=== PATIENT | female | born 1980 ===

== ENCOUNTER 2017-01-07 13:21 | Observation (INO) ==
[2017-01-07] MEDS ORDERED: HYDROmorphone 2 MG/1 ML VIAL ONE (13:51)
[2017-01-07] MEDS ORDERED: ONDANSETRON 4 MG/2 ML VIAL ONE (13:51)
[2017-01-07] MEDS ORDERED: HYDROmorphone 2 MG/1 ML VIAL IV STA (13:52)
[2017-01-07] MEDS ORDERED: ONDANSETRON 4 MG/2 ML VIAL IV STA (13:52)
--- NOTE | 2017-01-07 14:25 | Emergency Department Note ---
Karel Desouza Gwan, am scribing for, and in the presence of, Chavo Rodriguez MD 13:46. Michael Desouza Phillip K, MD, personally performed the services described in this documentation, ascribed by Bryce Vinson in my presence, and it is both accurate and complete 425 . Arrival - Arrival Chief Complaint: Abdominal / Flank Pain Stated Complaint: ABD PAIN TRANSFER FROM [facility] ED Nursing Triage Note: PT TRANSFERED FROM [facility] FOR EVALUATION OF ABD PAIN THAT STARTED LAST PM. PT REPORTS BLOOD IN HER URINE. PT HAS CT THAT SHOWED LT.HYDRONEPHROSIS AND RENAL STONES. PT ALSO NOTED TO HAVE GALLSTONES Mode of Arrival: Stretcher Limitations: No Limitations Source: Patient, Old Records Reviewed, RN Notes Reviewed - History of Present Illness HPI Narrative: Pt is a 36 y/o female, with a hx of HTN and cardiomyopathy, who presents to the ED for further evaluation of abd pain with an onset last night. Patient reported to [facility] today due to pain and upon further review, pt was dx with renal stones, hydronephrosis and gallstones. Patient confirmed that her pain has worsened today, that her pain radiates to her abd and now her sxs includes N/V. She denies any hx of kidney stones. She then noted that she was given Morphine en route. No other problems/complaints reported in ED. Onset (ago): hour(s) Consistency: constant Severity: moderate Allergies/Adverse Reactions: Allergies Allergy/AdvReac Type Severity Reaction Status Date / Time No Known Allergies Allergy Unverified 01/07/17 13:25 Review of System - Review of System 12 point system: reviewed and no additional remarkable complaints except as stated - Review of System Gastrointestinal: Present: as per HPI, abdominal pain Musculoskeletal: Present: as per HPI, lower back pain Medical,Surgical,& Family Hx - Medical History Cardio: History of: Hypertension, Cardiovascular Problems (CARDIOMYOPATHY) - Social History Smoking Status: Unknown if ever smoked Exam Vital Signs: Vital Signs Temperature 97.4 F L 01/07/17 13:21 Pulse Rate 71 01/07/17 13:21 Respiratory Rate 18 01/07/17 13:21 Blood Pressure 163/116 01/07/17 13:21 O2 Sat by Pulse Oximetry 98 01/07/17 13:21 - General General appearance: alert, in no apparent distress - Head Head exam: Present: atraumatic, normocephalic - Eye Eye exam: Present: normal appearance, PERRL, EOMI - ENT ENT exam: Present: normal oropharynx, mucous membranes moist, TM's normal bilaterally, normal external ear exam - Neck Neck exam: Present: full ROM, trachea midline. Absent: tenderness, meningismus , lymphadenopathy, thyromegaly - Chest Chest inspection: Present: symmetric chest wall rise. Absent: tenderness - Respiratory Respiratory exam: Present: normal lung sounds bilaterally. Absent: respiratory distress - Cardiovascular Cardiovascular exam: Present: regular rate, normal rhythm, normal heart sounds. Absent: murmur, rubs, gallop - Abdominal Exam Abdominal exam: Present: soft, normal bowel sounds - Extremities Exam Extremities exam: Present: full ROM. Absent: tenderness, pedal edema, calf tenderness - Back Exam Back exam: Present: full ROM. Absent: tenderness - Neurological Exam Neurological exam: Present: alert, oriented X3, CN II-XII intact. Absent: motor sensory deficit - Psychiatric Psychiatric exam: Present: normal affect, normal mood - Skin Skin exam: Present: warm, dry, intact, normal color Course Course Narrative: Patient discussed with Dr. Bernal who will see in the ED. Results - Diagnostic Findings Procedure: CT Abdomen and Pelvis: image reviewed by me (CT scan reviewed from [facility] which revealed a 67 mm stone in the proximal left ureter with left hydronephrosis. There is also gallstones noted on the CAT scan.) Disposition Clinical Impression: Ureterolithiasis, Gallstones, Hydronephrosis, left Case discussed with: patient Disposition: Still a Patient Condition: Stable Additional Instructions: Patient will be admitted to Dr. Bernal.
--- NOTE | 2017-01-07 14:43 | XRay Report ---
XR KUB Indication: Left-sided stone. Comparison: None. Technique: Supine AP image of the abdomen was obtained. Findings: There is a round calcification overlying the left transverse process of L3 which measures up to 5 mm. Smaller 2 to 3 mm calcifications noted bilaterally within the renal contour suggesting additional nephroliths. No organomegaly is present. Bony structures appear intact. Impression: 1. Multiple bilateral nephroliths are demonstrated. 2. Moderately large 5 mm calcification overlying the left transverse process of L3 compatible with proximal left ureteral stone additionally is present. 01/07/2017 2:34 PM PROCEDURE INTERPRETED AT [facility] DEPARTMENT OF RADIOLOGY Final Report Signed by: Dr. Johnny Montoya
--- NOTE | 2017-01-07 14:53 | Urology History & Physical ---
- Constitutional Constitutional: Absent: fever(s), lethargy, night sweats, weakness - Cardiovascular Cardiovascular: Absent: chest pain with activity, radiating jaw, neck or arm pain, orthopnea, palpitations - Respiratory Respiratory: Absent: cough, dyspnea, hemoptysis, wheezing - Gastrointestinal Gastrointestinal: Absent: constipation, heartburn, vomiting, jaundice - Genitourinary Genitourinary: Present: as per HPI - Neurological Neurological: Absent: abnormal gait, abnormal speech - Psychiatric Psychiatric: Absent: anxiety, depression History of Present Illness Chief complaint: Left flank pain History of present illness: Ms. Rain is a 36 year old female This 36-year-old female was seen at the [facility] the day of admission with a 2 day history of left flank pain. It started yesterday but got worse today. Renal colic CT shows a 6 mm stone in the left upper ureter. She has no past history of stones or any serious urological problems. Because of the size and location I am going recommend that we go ahead and treat her tomorrow with shockwave lithotripsy. I discussed this with the patient and we discussed the possible complications of failure of the procedure obstruction from fragments and hematuria. Patient has a history of cardiomyopathy so I am going to get a cardiology consultation prior to surgery. This was apparently diagnosed many years ago but she does not see a continuity clerk regularly and has had no history of congestive heart failure Home Medications Medication Instructions Recorded Confirmed Type No Known Home Medications [No 01/07/17 01/07/17 History Known Home Medications] Allergies Allergy/AdvReac Type Severity Reaction Status Date / Time No Known Allergies Allergy Unverified 01/07/17 13:25 Medical,Surgical,& Family Hx - Medical History Cardio: History of: Hypertension, Cardiovascular Problems (CARDIOMYOPATHY) Psychological: No history of: Psychiatric Problems Neurology: No history of: Neurological Problems Endocrine: No history of: Endocrine Problems Rheumatology: No history of;: Rheumatological Problems Respiratory: No history of: Respiratory Problems Genitourinary: No history of: Problems Gastrointestinal: No history of: GI Problems Musculoskeletal: No history of: Musculoskeletal Problems - Surgical History Surgical History: noncontributory - Social History Smoking Status: Unknown if ever smoked Exam - Constitutional Vitals: Period Temp Pulse Resp BP Sys/Leach Pulse Ox Last 24 Hr 97.4 F 71 18 163/116 98 General appearance: no acute distress, over weight - Head Head exam: Present: normocephalic - Neck Neck exam: Present: normal inspection - Respiratory Respiratory exam: Present: clear to auscultation bilaterally - Cardiovascular Cardiovascular exam: Present: regular rate and rhythm, systolic murmur - GI/Abdominal GI/Abdominal exam: Absent: distended, guarding, tenderness, rebound - Back Exam Back exam: Absent: muscle spasm - Neurological Exam Neurological exam: Present: alert, oriented X3 - Psychiatric Psychiatric exam: Present: normal affect, normal mood - Skin Skin exam: Present: warm, dry
[2017-01-07] MEDS ORDERED: MORPHINE 10 MG/1 ML VIAL IV PRN (18:49)
[2017-01-07] MEDS ORDERED: PROMETHAZINE 25 MG/1 ML VIAL IM SCH (19:00)
[2017-01-07] MEDS: DEXTROSE 5% NACL 0.45% 1,000 ML IV SCH (20:45)
[2017-01-07] MEDS ORDERED: PROMETHAZINE 25 MG/1 ML VIAL IM PRN (21:51)
--- NOTE | 2017-01-08 07:54 | Event Note ---
This morning, at 0746, I received a phone call from nurse advising of consult for cardiac clearance for Dr. Bernal for lithotripsy this morning. History of self-reported cardiomyopathy though not followed by a fisher troll line. I searched for prior records in [facility] computer systems as well as [facility] medical records and there are none. I have ordered an echo for this morning, EKG. Will discuss with Dr. Farley when he is available, currently in a procedure.
--- NOTE | 2017-01-08 07:58 | Urology Progress Note ---
Urology - PN: Subj Interval history: The patient is doing well this morning. I will discharge her to outpatient surgery for shockwave lithotripsy. Cardiology consult is pending for history of cardiomyopathy Exam - Constitutional Vitals: Period Temp Pulse Resp BP Sys/Leach Pulse Ox Last 24 Hr 97.8 F-98.3 F 64-77 18-20 86-145/54-84 96-100
--- NOTE | 2017-01-08 08:01 | Discharge Summary ---
Hospital Course - Hospital Course Hospital Course: This 36-year-old was admitted to the hospital with a 2 day history of left flank pain. A CT scan in [place] demonstrated a 5-6 mm stone in the left proximal ureter. Laboratory studies there were normal. She has a history of cardiomyopathy and a cardiology consultation is pending. She will be discharged with her IV to outpatient surgery for shockwave lithotripsy. Discharge Plan - Discharge Medications No Action No Known Home Medications [No Known Home Medications] - Follow Up or Referral - Forms/Instructions Exam - Constitutional Vitals: Period Temp Pulse Resp BP Sys/Leach Pulse Ox Last 24 Hr 97.8 F-98.3 F 64-77 18-20 86-145/54-84 96-100 DS: Provider Date of admission: 01/07/17 19:02 Primary care physician: Tanika Galloway MD Attending physician on admission: Bautista Bernal MD Discharging clinician: Bautista Bernal MD
--- NOTE | 2017-01-08 08:33 | EKG Report ---
Stationary ECG Study [facility] Test Date: 01/08/2017 8:24:41 AM Pat Name: ALVARADO OROSCO Department: Room: 526 Gender: F Cloth Shearer: ALYX : 1980 Requested by: Mikayla West Order Number: [id number] [place] MD: LALITA LEAVITT Intervals [place] Rate: 73 P: 52 GA: 145 QRS: 6 QRSD: 89 T: -14 QT: 424 QTc: 450 Interpretive Statements SINUS RHYTHM MINIMAL ST DEPRESSION Electronically Signed On 01-10-17 19:37:48 CDT by LALITA LEAVITT [email or web address]
--- NOTE | 2017-01-08 08:35 | Cardiology Consult Note ---
Assessment and Plan - Time spent with patient Time spent with patient: Greater than 30 minutes (Chart review, exam documentation) (1) Hypertension Status: Chronic Current Visit: Yes Qualifiers: Hypertension type: essential hypertension Qualified Code(s): I10 - Essential (primary) hypertension (2) Cardiomegaly Status: Chronic Assessment and plan: This patient appears to have some type of congenital heart disease. She is completely compensated is never had any heart failure signs or symptoms. She needs evaluation and echo and EKG have been ordered but they are pending. She has no chest pain and no signs or symptoms of decompensated heart failure since her diagnosis she has had a normal vaginal and 2 sections. She may proceed with proposed intermediate risk lithotripsy without further cardiovascular workup or evaluation. I will be glad to follow her up as an outpatient. Current Visit: Yes (3) Ureterolithiasis Status: Acute Current Visit: Yes (4) Hydronephrosis, left Status: Acute Current Visit: Yes History of Present Illness - Data of Consult Patient: new to practice Consult date: 01/08/17 Requesting Physician: Bautista Bernal - Consult Narrative Reason for consult: pre-op risk assessment History of present illness: Ms. Rain is a 36 year old female who has a history of what she describes as cardiac cardiomyopathy that she was told she had at age 15. She has no family history of known cardiomyopathy. Since that time she has had a normal vaginal and 2 sections without complications. She has no signs or symptoms of decompensated cardiomyopathy. She has no exercise limitations she sleeps on one pillow at night and she does not not experience lower extremity edema. She does not have chest pain. She has never been hospitalized for decompensated heart failure. The patient is now admitted to the hospital for lithotripsy and I been asked to see for preoperative risk assessment. The patient states she has not been seen by machine turner ever. She is unaware of any invasive or noninvasive evaluation of her heart. How she was told she had cardiomyopathy is unknown to me or the patient. CC: Bautista Bernal MD - Home Medications and Allergies Home Medications: Home Medications Medication Instructions Recorded Confirmed Type No Known Home Medications [No 01/07/17 01/07/17 History Known Home Medications] Allergies/Adverse Reactions: Allergies Allergy/AdvReac Type Severity Reaction Status Date / Time No Known Allergies Allergy Unverified 01/07/17 13:25 - Constitutional Constitutional: Absent: anorexia, night sweats, stops breathing during sleep, weight gain - EENT Eyes: Absent: blurry vision, diplopia Ears: Absent: decreased hearing Nose, mouth and throat: Absent: dysphagia - Cardiovascular Cardiovascular: Absent: chest pain at rest, chest pain with activity, dyspnea, dyspnea on exertion, edema, lightheadedness, orthopnea, palpitations - Respiratory Respiratory: Absent: cough, dyspnea, dyspnea on exertion - Gastrointestinal Gastrointestinal: Absent: abdominal pain, bloating, dyspepsia - Genitourinary Genitourinary: Absent: abnormal vaginal bleeding, difficulty urinating - Musculoskeletal Musculoskeletal: Absent: arthralgias, joint swelling - Neurological Neurological: Absent: abnormal gait, confusion, convulsions, disequilibrium, frequent falls, headache(s) - Psychiatric Psychiatric: Absent: anxiety, depression - Endocrine Endocrine: Absent: cold intolerance, heat intolerance - Hematologic/Lymphatic Hematologic/Lymphatic: Absent: easy bleeding, easy bruising Medical,Surgical,& Family Hx - Medical History Cardio: History of: Hypertension, Cardiovascular Problems (CARDIOMYOPATHY) Psychological: No history of: Psychiatric Problems Neurology: No history of: Neurological Problems Endocrine: No history of: Endocrine Problems Rheumatology: No history of;: Rheumatological Problems Respiratory: No history of: Respiratory Problems Genitourinary: No history of: Problems Gastrointestinal: No history of: GI Problems Musculoskeletal: No history of: Musculoskeletal Problems - Family History Family History: Reports;: Family Diabetes (father), Family Heart Disease (mother ), Family Hypertension (mother) Denies;: Family Anesthesia Reaction, Family Cancer, Family Hematology, Family Psychiatric Problems, Family Stroke, Additional Family History - Social History Smoking Status: Unknown if ever smoked Frequency of Alcohol Use: Rarely Type of Drug Use: None Marital Status: Single Lives With:: Children Functional capacity: independent ambulation (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 She has a what sounds to be a left ventricular outflow tract murmur that is systolic I cannot make a change with manipulation. Her PMI is laterally displaced) Lungs: Present: Normal Exam (No rales). Absent: No Rales Neuro: Present: Cranial Nerve 2-12 Intact, Motor Function Intact Abdomen: Present: Soft, Active Bowel Sounds Skin: Present: Clear, Rash Gait: Present: Normal Gait Extremities: Present: Normal Gait, No Clubbing, No Cyanosis, No Edema. Absent: Edema Specialty Discharge - Follow Up or Referrals Follow up with: Liz Farley DO [Physician] - 1 Month (ECG)
[2017-01-08] MEDS: DEXTROSE 5% NACL 0.45% 1,000 ML IV SCH (09:12)
--- NOTE | 2017-01-08 09:49 | ECHO Report ---
Shanika Rain Exam Date: 01/08/2017 08:41 Referring Physician: Technologist: Pina Cooper Age: 36 Ht (in): 61 Wt (lb): 184 Gender: F Exam Location: [facility] Echo Indications: ureterolithiasis, gallstones, left hydronephrosis BP: 99 / 68 HR: 65 Rhythm: NSR Technical Quality: good IMPRESSIONS Left ventricular ejection fraction is estimated at 55 % with no regional wall motion abnormality. Grade 3 diastolic dysfunction. Mild left ventricular hypertrophy. Tricuspid regurgitation velocities suggest a RVSP of 39 mmHg + RAP. Moderate tricuspid valve regurgitation. MEASUREMENTS (Male / Female) Normal Values 2D ECHO LV Diastolic Diameter PLAX 4.3 cm 4.2 - 5.9 / 3.9 - 5.3 cm LV Systolic Diameter PLAX 3.2 cm LV Fractional Shortening PLAX 24.7 % IVS Diastolic Thickness 1.2 cm 0.6 - 1.0 / 0.6 - 0.9 cm LVPW Diastolic Thickness 1.1 cm 0.6 - 1.0 / 0.6 - 0.9 cm RV Internal Dim ED PLAX 2.0 cm Aortic Root Diameter 2.6 cm LA Systolic Diameter LX 3.7 cm 3.0 - 4.0 / 2.7 - 3.8 cm DOPPLER TR Peak Velocity 311.0 cm/s TR Peak Gradient 38.7 mmHg FINDINGS Left Ventricle Normal left ventricular cavity size. Mild left ventricular hypertrophy. Left ventricular ejection fraction is estimated at 55 % with no regional wall motion abnormality. Grade 3 diastolic dysfunction. Right Ventricle Mildly increased right ventricular size. Right Atrium The right atrium is mildly enlarged. Left Atrium The left atrium is mildly enlarged. Mitral Valve Mild mitral valve sclerosis. Mild mitral valve regurgitation. Aortic Valve Mild aortic valve sclerosis. Tricuspid Valve Morphologically normal tricuspid valve. Moderate tricuspid valve regurgitation. Tricuspid regurgitation velocities suggest a RVSP of 39 mmHg + RAP. Pulmonic Valve Morphologically normal pulmonic valve. Pericardium No pericardial effusion. Aorta Normal size aortic root and proximal ascending aorta. Liz Farley (Electronically Signed) Final Date: 08 January 2017 09:48
--- NOTE | 2017-01-08 11:44 | XRay Report ---
XR chest 2V Date: 01/08/2017 8:19 AM History: Cardiomegaly Comparison: None Technique: PA and lateral chest Findings: The heart is normal in size. Subsegmental atelectasis in the left lower lung zone. Unremarkable mediastinum. Minimal degenerative changes. Impression: The heart is normal in size. Subsegmental atelectasis in the left lower lung zone. PROCEDURE INTERPRETED AT [facility] DEPARTMENT OF RADIOLOGY Final Report Signed by: Dr. Shauna Philippe
[2017-01-08 11:53] VITALS: BP 113/72
== END 2017-01-08 12:04 | disposition home or self-care (01) ==
LOC: N.EDINP 13:21 → N.ED 13:21 → N.EDINP 18:35 → N.5E 19:18
PROVIDERS: ADMIT Urology; ATTEND Urology

== ENCOUNTER 2022-05-21 09:56 | Inpatient (IN) ==
[2022-05-19 12:34] LABS: Bacteria,Urine Occasional /HPF (Few); Mucus,Urine Occasional /LPF (Occasional); RBC,Urine 2 /HPF (0-4); Squamous Epithelial Cell,Urine Few /HPF (0-10)
[2022-05-19 12:36] LABS: Urine Appearance Clear (Clear); Urine Color Yellow (Yellow); Urine pH 6.5 (4.5-8.0)
[2022-05-19 12:37] LABS: Bilirubin,Urine Negative (Negative); Blood, Urine Trace mg/dL (Negative); Glucose,Urine (UA) Negative (Negative); Ketones,Urine Negative (Negative); Nitrite,Urine Negative (Negative); Protein,Urine Negative (Negative); Urine Specific Gravity 1.015 (1.001-1.035); Urine Urobilinogen 0.2 eU/dL (<2.0)
[2022-05-19 12:57] LABS: Alanine Aminotransferase 17 U/L (13-56); Albumin 3.1 G/DL (3.4-5.0); Alkaline Phosphatase 152 U/L (45-117); Aspartate Amino Transferase 10 U/L (0-37); Bilirubin,Total < 0.39 MG/DL (0.20-1.00); Blood Urea Nitrogen 11 MG/DL (7-18); Calcium 8.7 MG/DL (8.5-10.1); Carbon Dioxide 26 MMOL/L (21-32); Chloride 109 MMOL/L (98-107); Cholesterol 173 MG/DL (50-200); Glucose 132 MG/DL (74-106); HDL Cholesterol 28 MG/DL (40-60); Osmolality,Calculated 283.1 MOS/KG (273-304); Potassium 3.2 MMOL/L (3.5-5.1); Risk Ratio 6.18; Sodium 142 MMOL/L (136-145); Triglycerides 252 MG/DL (2-150); VLDL Cholesterol 50.4 MG/DL
[2022-05-19 13:07] LABS: Basophils % 0.3 % (0.0-0.8); Eosinophils # 0.3 10*3/uL (0.0-0.87); Eosinophils % 2.6 % (0.00-10.9); Hematocrit 32.9 VOL% (35.7-47.0); Hemoglobin 9.4 GM/DL (12.0-16.0); Immature Granulocytes % 0.5 %; Immature Granulocytes Absolute 0.06 #; Lymphocytes # 2.4 10*3/uL (1.4-4.0); Lymphocytes % 18.9 % (21.3-54.2); Mean Corpuscular HGB Conc 28.6 GM/DL (32-36); Mean Corpuscular Volume 68.3 FL (87-102); Mean Platelet Volume 9.3 FL (9.6-12.0); Monocytes # 0.6 10*3/uL (0.11-0.8); Monocytes % 4.4 % (1.7-12.7); Neutrophils % 73.3 % (38.7-73.9); Platelet Count 558 T/CUMM (130-400); Red Blood Count 4.82 MC/CUMM (3.8-5.5); Red Cell Distribution Width 18.5 % (9.3-17.3); White Blood Count 12.8 T/CUMM (4-12)
[2022-05-19 13:56] LABS: HIV Antigen/Antibody Result Nonreactive (Nonreactive)
[2022-05-19 15:00] LABS: Hypochromia 1+; Platelet Estimate Increased
[~2022-05-21 09:56] MED LIST: AMPICILLIN/SULBACTAM 3,000 MG in SODIUM CHLORIDE 0.9% 100 ML IV ONE; LACTATED RINGERS 1,000 ML IV SCH
[2022-05-21] MEDS ORDERED: ACETAMINOPHEN 500 MG TABLET PO ONE (11:55)
[2022-05-21] MEDS ORDERED: DIAZEPAM 5 MG TABLET PO ONE (11:55)
[2022-05-21] MEDS ORDERED: FAMOTIDINE 20 MG TABLET PO ONE (11:55)
[2022-05-21] MEDS ORDERED: GABAPENTIN 400 MG CAPSULE PO ONE (11:55)
[2022-05-21] MEDS ORDERED: MIDAZOLAM 2 MG/2 ML VIAL ONE (13:20)
[2022-05-21] MEDS ORDERED: ROPIVACAINE 0.5% 30 ML VIAL ONE (13:21)
[2022-05-21] MEDS ORDERED: DEXAMETHASONE 4 MG/1 ML VIAL ONE ×2 (13:21→15:10)
[2022-05-21] MEDS ORDERED: LIDOCAINE 1% 5 ML VIAL ONE (13:21)
[2022-05-21] MEDS ORDERED: DEXMEDETOMIDINE 200 MCG/2 ML VIAL ONE (13:21)
[2022-05-21] MEDS ORDERED: fentaNYL 100 MCG/2 ML VIAL ONE (13:30)
[2022-05-21] MEDS ORDERED: LIDOCAINE 2% 5 ML VIAL ONE (13:32)
[2022-05-21] MEDS ORDERED: ROCURONIUM 50 MG/5 ML VIAL IV ONE (13:32)
[2022-05-21] MEDS ORDERED: propofoL 200 MG/20 ML VIAL IV ONE (13:36)
[2022-05-21] MEDS ORDERED: ONDANSETRON 4 MG/2 ML VIAL ONE (13:53)
[2022-05-21] MEDS ORDERED: DESFLURANE 1 UNIT/15 MINUTE INH ONE ×2 (14:07→15:28)
[2022-05-21] MEDS ORDERED: PHENYLEPHRINE 1 MG/10 ML SYRINGE IV ONE (14:07)
[2022-05-21] MEDS ORDERED: GLYCOPYRROLATE 0.4 MG/2 ML VIAL ONE (15:13)
[2022-05-21] MEDS ORDERED: NEOSTIGMINE 10 MG/10 ML VIAL ONE (15:13)
[2022-05-21] MEDS ORDERED: FUROSEMIDE 20 MG/2 ML VIAL ONE (15:19)
[2022-05-21] MEDS ORDERED: BISACODYL 10 MG SUPP RECTAL PRN (15:49)
[2022-05-21] MEDS ORDERED: ACETAMINOPHEN 325 MG TABLET PO PRN (15:49)
[2022-05-21] MEDS ORDERED: BENZOCAINE/MENTHOL LOZENGE 18/BOX PO PRN (15:49)
[2022-05-21] MEDS ORDERED: ONDANSETRON 4 MG/2 ML VIAL IV PRN (15:49)
[2022-05-21 15:55] LABS: Mucus,Urine Occasional /LPF (Occasional); RBC,Urine 1 /HPF (0-4); Squamous Epithelial Cell,Urine Occasional /HPF (0-10)
[2022-05-21 15:57] LABS: Bilirubin,Urine Negative (Negative); Blood, Urine Negative (Negative); Glucose,Urine (UA) Negative (Negative); Ketones,Urine Negative (Negative); Nitrite,Urine Negative (Negative); Protein,Urine Negative (Negative); Urine Appearance Clear (Clear); Urine Color Yellow (Yellow); Urine Urobilinogen 0.2 eU/dL (<2.0)
[2022-05-21] MEDS: LACTATED RINGERS 1,000 ML IV SCH (16:05)
[2022-05-21] MEDS: HYDROmorphone 1 MG/1 ML SYRINGE IV PRN ×2 (17:48→21:03)
[2022-05-21 22:59] LABS: Basophils % 0.2 % (0.0-0.8); Hematocrit 30.7 VOL% (35.7-47.0); Hemoglobin 9.2 GM/DL (12.0-16.0); Immature Granulocytes % 0.7 %; Immature Granulocytes Absolute 0.15 #; Lymphocytes # 0.8 10*3/uL (1.4-4.0); Lymphocytes % 3.5 % (21.3-54.2); Mean Corpuscular Volume 68.1 FL (87-102); Mean Platelet Volume 9.2 FL (9.6-12.0); Monocytes # 0.1 10*3/uL (0.11-0.8); Monocytes % 0.6 % (1.7-12.7); Platelet Count 585 T/CUMM (130-400); Red Blood Count 4.51 MC/CUMM (3.8-5.5); Red Cell Distribution Width 18.5 % (9.3-17.3); White Blood Count 22.5 T/CUMM (4-12)
[2022-05-22] LABS: Lymphocytes 4 % (20-55); Microcytosis 1+; Platelet Estimate Increased; Total Cells Counted 100
[2022-05-22] MEDS: LACTATED RINGERS 1,000 ML IV SCH ×3 (00:17→17:52)
[2022-05-22] MEDS: HYDROmorphone 1 MG/1 ML SYRINGE IV PRN ×2 (01:42→05:08)
[2022-05-22 06:21] LABS: Basophils % 0.1 % (0.0-0.8); Hematocrit 28.2 VOL% (35.7-47.0); Hemoglobin 8.2 GM/DL (12.0-16.0); Immature Granulocytes % 0.8 %; Immature Granulocytes Absolute 0.12 #; Lymphocytes # 1.1 10*3/uL (1.4-4.0); Mean Corpuscular HGB Conc 29.1 GM/DL (32-36); Mean Corpuscular Volume 67.5 FL (87-102); Mean Platelet Volume 9.1 FL (9.6-12.0); Monocytes # 0.7 10*3/uL (0.11-0.8); Monocytes % 4.5 % (1.7-12.7); Neutrophils % 87.6 % (38.7-73.9); Platelet Count 547 T/CUMM (130-400); Red Blood Count 4.18 MC/CUMM (3.8-5.5); Red Cell Distribution Width 18.2 % (9.3-17.3); White Blood Count 15.9 T/CUMM (4-12)
[2022-05-22] MEDS: METOCLOPRAMIDE 10 MG/2 ML VIAL IV SCH ×3 (08:33→23:39)
[2022-05-22] MEDS: FERROUS SULFATE 325 MG TABLET PO SCH ×2 (09:00→21:08)
[2022-05-22] MEDS: MAGNESIUM HYDROXIDE SUSP 30 ML UDCUP PO PRN ×2 (12:16→21:08)
[2022-05-22] MEDS: DOCUSATE SODIUM 100 MG CAPSULE PO PRN ×2 (12:16→21:08)
[2022-05-22] MEDS: POTASSIUM CHLORIDE 20 MEQ TABLET PO PRN ×4 (12:16→18:21)
[2022-05-22] MEDS: SIMETHICONE CHEW 80 MG TABLET PO PRN (12:38)
[2022-05-22] MEDS: IBUPROFEN 800 MG TABLET PO PRN (18:20)
[2022-05-23] MEDS: IBUPROFEN 800 MG TABLET PO PRN (05:22)
[2022-05-23 06:30] LABS: Albumin 2.5 G/DL (3.4-5.0); Bilirubin,Total 0.4 MG/DL (0.20-1.00); Calcium 7.8 MG/DL (8.5-10.1); Osmolality,Calculated 282.1 MOS/KG (273-304); Potassium 3.5 MMOL/L (3.5-5.1); Total Protein 6.1 G/DL (6.4-8.2)
[2022-05-23 08:23] VITALS: BP 129/68
[2022-05-23] MEDS: FERROUS SULFATE 325 MG TABLET PO SCH (09:20)
[2022-05-23] MEDS: DOCUSATE SODIUM 100 MG CAPSULE PO PRN (09:20)
[2022-05-23] MEDS: SIMETHICONE CHEW 80 MG TABLET PO PRN (09:21)
== END 2022-05-23 10:03 | disposition home or self-care (01) | DRG 743 ==
LOC: N.OR 09:56 → N.SDSINP 10:19 → EDSTATUS 13:30 → N.OB 15:48
PROVIDERS: ADMIT Obstetrics & Gynecology; ATTEND Obstetrics & Gynecology